=== PATIENT | female | born 1950 | race Caucasian/White ===

== ENCOUNTER 2016-09-16 09:57 | Day surgery (SDC) | payer OTHER ==
[~2016-09-16] VITALS: Ht 154.9 cm; Wt 68.0 kg
[2016-09-16 10:32] VITALS: Ht 154.9 cm; Wt 68.0 kg
[2016-09-16] MEDS ORDERED: LEVO50TA74 PO (10:41)
[2016-09-16] MEDS ORDERED: ASPI-535 PO (10:41)
[2016-09-16 10:58] VITALS: BP 148/67; PULSE 61; RESP 18
[2016-09-16] MEDS ORDERED: MIDAZOLAM 1 MG/ML 2 ML INJ ONE ×2 (11:59→12:01)
[2016-09-16] MEDS ORDERED: FENTAnyl 50 MCG/ML VIAL ONE (11:59)
--- NOTE | 2016-09-16 12:22 | GILP ---
DATE OF PROCEDURE: 09/16/2016 NAME OF PROCEDURES: Colonoscopy and biopsy. SURGEON: Katelyn Skinner MD PREOPERATIVE DIAGNOSIS: Screening colonoscopy. POSTOPERATIVE DIAGNOSES: 1. Colonoscopy all the way to the cecum. 2. Two small colon polyps were removed using the biopsy forceps. 3. Internal hemorrhoids. INDICATION FOR THE PROCEDURE: Ms. Sharri Montana is a 65-year-old female patient who was schedul ed for screening colonoscopy. The procedure and possible complications are well explained to the patient, she understood and conse nted to the procedure. DESCRIPTION OF PROCEDURE: Under the influence of fentanyl and Versed, the colonoscope was carefully introduced in the rectum and under direct vision, it was advanced all the way to the cecum. FINDINGS: The patient had 2 small colon polyps and they were removed using the biopsy forceps. She was noted to have internal hemorrhoids. She tolerated the procedure very well and there was no complication from the procedure. At the end of the procedures, she was awake with stable vital signs and she was discharged home to the care of her family. IMPRESSION: 1. Colonoscopy all the way to the cecum. 2. Two small colon polyps were removed using the biopsy forceps. 3. Internal hemorrhoids. PLAN: Next screening colonoscopy in 10 years. Dictated By: KATELYN GARCIA/RADHA Conf#: [id number] DID#: [id number] CC: KATELYN SKINNER MD;*EndCC*
[2016-09-16 12:26] VITALS: BP 120/64; PULSE 63; RESP 18
== END 2016-09-16 13:06 | disposition home or self-care (01) ==
LOC: GIL 09:57
PROVIDERS: ATTEND Internal Medicine Gastroenterology
DX: Z12.11 Encounter for screening for malignant neoplasm of colon (principal); K63.5 Polyp of colon; K64.8 Other hemorrhoids
CPT/HCPCS: 45380; 88305; J2250; J3010; Z7610